=== PATIENT | female | born 1980 | race Caucasian/White ===

== ENCOUNTER → 2017-04-29 09:55 | Outpatient (CLI) | payer MEDICAID ==
[2017-04-29 11:16] LABS: ALBUMIN 3.4 g/dL (3.4-5.0); ALKALINE PHOSPHATASE 92 U/L (46-116); ALT (SGPT) 29 U/L (10-68); CALC OSMOLALITY 278 mosm/kg (275-300); CALCIUM 8.8 mg/dL (8.5-10.1); CARBON DIOXIDE 26.1 mmol/L (21.0-32.0); CHLORIDE - SERUM 104 mmol/L (98-107); CREATININE - SERUM 0.9 mg/dL (0.6-1.3); GLUCOSE 112 mg/dL (74-106); POTASSIUM - SERUM 4.4 mmol/L (3.5-5.1); SODIUM 139 mmol/L (136-145); THYROID STIMULATING HORMONE 1.47 uIU/mL (0.36-3.74); UREA NITROGEN 12 mg/dL (7-18); eGFR NON AFRICAN AMERICAN 75 mL/min (90-120)
[2017-04-30 06:18] LABS: RAPID PLASMA REAGIN Non Reactive (Non Reactive)
[2017-04-30 09:19] LABS: FOLATE (FOLIC ACID) - SERUM 12.5 ng/mL (>3.0)
== END | disposition home or self-care (01) ==
LOC: D.LAB 09:55 → D.MRI 11:00
PROVIDERS: Psychiatry & Neurology Neurology
DX: G43.009 Migraine without aura, not intractable, without status migrainosus (principal); E66.01 Morbid (severe) obesity due to excess calories; G47.8 Other sleep disorders

== ENCOUNTER → 2017-06-04 19:37 | Outpatient (CLI) | payer MEDICAID | END | disposition home or self-care (01) | LOC: D.SLEEP 19:37 | DX: G47.9 Sleep disorder, unspecified (principal) ==

== ENCOUNTER 2018-09-21 22:13 | Emergency (ER) | payer MEDICAID ==
[~2018-09-21] VITALS: Ht 152.4 cm; Wt 117.3 kg
[2018-09-21 22:18] VITALS: Ht 152.4 cm; Wt 117.3 kg
[2018-09-21] MEDS ORDERED: PROZAC40 MG PO (22:19)
[2018-09-21] MEDS ORDERED: TIROSINT13 MCG (22:19)
[2018-09-21] MEDS ORDERED: TORADOL10 MG PO (22:45)
[2018-09-21] MEDS ORDERED: NEURONTIN 300300 MG PO (22:45)
[2018-09-21 23:01] VITALS: BP 134/79
== END 2018-09-21 23:01 | disposition home or self-care (01) ==
LOC: D.ER 22:13
DX: M54.16 Radiculopathy, lumbar region (principal)